=== PATIENT | male | born 1960 | race African-American/Black ===

== ENCOUNTER 2019-06-25 11:23 | Emergency (ER) | payer OTHER ==
[~2019-06-25] VITALS: Ht 172.7 cm; Wt 66.0 kg
[2019-06-25 11:27] VITALS: BP 103/67
[2019-06-25] MEDS ORDERED: BACITRACIN ZINC OINT UDPKT TOP ONE (12:00)
[2019-06-25] MEDS ORDERED: IBUPROFEN 600MG TABLET PO ONE (12:00)
[2019-06-25] MEDS ORDERED: LIDOCAINE HCL/PF 1% 10 MG/ML 5ML VIAL IJ ONE (12:00)
== END 2019-06-25 14:45 | disposition home or self-care (01) ==
LOC: ER 12:30
DX: S01.81XA Laceration without foreign body of other part of head, initial encounter (principal); X99.8XXA Assault by other sharp object, initial encounter; Y93.89 Activity, other specified; Y92.89 Other specified places as the place of occurrence of the external cause
CPT/HCPCS: 12011; 70450; 70486; 99284; J3490